=== PATIENT | female | born 1960 | race Caucasian/White ===

== ENCOUNTER 2023-06-28 21:06 | Emergency (ER) | payer OTHER, SELFPAY ==
[2023-06-28 21:14] VITALS: BP 190/110; PULSE 73; TEMP 36.6; O2SAT 94; BMI 43.0
--- NOTE | 2023-06-28 21:23 | ECG_ITS ---
[facility] Test Date: 2023-06-28 Pat Name: JERAMIE PEREZ Department: Room: - Gender: Female Ic Engineer: : 1960 Requested By: FRED TORREZ Order Number: [id number] Reading MD: FRED TORREZ Measurements Intervals [place] Rate: 64 P: 61 TN: 168 QRS: 70 QRSD: 84 T: 77 QT: 404 QTc: 413 Interpretive Statements 1100 Sinus rhythm [address] depression 9130 borderline ECG No previous ECG available for comparison Electronically Signed On 06-29-2023 5:30:15 EDT by FRED TORREZ
--- NOTE | 2023-06-28 21:24 | XR_ITS ---
[address] [address] Patient Name: JERAMIE PEREZ MRN: [id number] date: 1960 Sex: F Assigned Patient Location: ER Current Patient Location: ER Accession/Order Number: [id number] Exam Date: 06/28/2023 21:35 Report Date: 06/28/2023 22:59 At the request of: DANGELO WADE Procedure: XR chest 1V EXAMINATION: XR chest 1V, , 06/28/2023 9:35 PM EDT INDICATION: Hypertension HISTORY: Ordering Provider Reason for Exam: Hypertension Technologist Note: Additional: COMPARISON: None. TECHNIQUE: Chest x-ray: One view. FINDINGS: No pneumothorax, pleural effusion or focal airspace consolidation. Heart is normal in size. Bony thorax is unremarkable. XR/XR chest 1V IMPRESSION: No acute cardiopulmonary process. Electronically authenticated by: ZOË HOSKINS Date: 06/28/2023 22:59
--- NOTE | 2023-06-28 21:24 | CT_ITS ---
The [address] [address] Patient Name: JERAMIE PEREZ MRN: [id number] date: 1960 Sex: F Assigned Patient Location: ER Current Patient Location: Accession/Order Number: [id number] Exam Date: 06/28/2023 22:50 Report Date: 06/29/2023 00:12 At the request of: DANGELO WADE Procedure: CT head/brain wo con EXAM: CT head/brain wo con HISTORY: Neck pain and hypertension. TECHNIQUE: Axial CT scans through the head were obtained without IV contrast administration. Dose reduction techniques were achieved by using: automated exposure control and/or adjustment of mA and /or kV according to patient size and/or the use of an iterative reconstruction technique. COMPARISON: None. FINDINGS: The cerebral hemispheres have normal white and catherine matter and corticomedullary differentiation. To the limit of CT, the posterior fossa appears unremarkable. The ventricular system and cortical sulci are normal for the patient's age. No area of abnormal mass-effect or edema or intracranial hemorrhage. The visualized orbits show no abnormal mass. The visualized paranasal sinuses show no air-fluid level. Mastoid air cells are clear. CT/CT head/brain wo con IMPRESSION: No acute intracranial process. Electronically authenticated by: NEVIN JOHNSON Date: 06/29/2023 00:12
[2023-06-28 21:48] LABS: Basophils Percent Auto 0.4 % (0.2-2.0); Eosinophils Absolute Auto 0.2 10^3/uL (0.0-0.7); Eosinophils Percent Auto 1.5 % (0.9-7.0); Hematocrit 44.7 % (36.0-48.0); Hemoglobin 14.8 g/dL (12.0-16.0); Immature Granulocytes Abs Auto 0.03 10^3/uL (0.00-0.03); Immature Granulocytes Pct Auto 0.3 % (0.0-0.5); Lymphocytes Absolute Auto 3.5 10^3/uL (1.2-3.8); Lymphocytes Percent Auto 34.5 % (20.5-60.0); Mean Corpuscular HGB Conc 33.1 g/dL (29.9-35.2); Mean Corpuscular Hemoglobin 30.8 pg (26.7-34.0); Mean Corpuscular Volume 92.9 fL (81.0-99.0); Mean Platelet Volume 10.7 fL (9.5-13.5); Monocytes Absolute Auto 0.9 10^3/uL (0.3-0.8); Monocytes Percent Auto 8.8 % (1.7-12.0); Neutrophils Absolute Auto 5.5 10^3/uL (1.4-6.5); Neutrophils Percent Auto 54.5 % (43.0-75.0); Platelet Count 355 10^3/uL (150-450); Red Blood Count 4.81 10^6/uL (4.20-5.40); Red Cell Distribution Width 12.6 % (11.0-15.0)
--- NOTE | 2023-06-28 21:48 | ED_ITS ---
Documented by User: DONALD Jeong 06/28/23 21:53 HPI HPI - General Adult General Chief complaint: Chest Pain Stated complaint: WEAKNESS Time Seen by Provider: 06/28/23 21:15 Source: patient Mode of arrival: walk-in Limitations: no limitations History of Present Illness HPI narrative: Patient is a 62-year-old female who presents to the emergency department for elevated blood pressure and feeling flushed, approximately 30 to 45 minutes prior to arrival. She states that she has a history of high blood pressure, she takes propranolol only and is due for her nighttime dosage at 10 PM. She states that she started to feel flushed and noticed discomfort in her neck. Several days ago she had a headache. She has had no chest pain although she states se veral days ago she had pressure in her chest. She has had no other fevers, cough or congestion. No visual loss or peripheral paresthesias. She checked her blood pressure and it was elevated. She states she does not feel dizzy although she did in the last several days. No syncope or falls. She has been on propranolol without adjustment for the last 10 years. Related Data Home Medications ?Medication ?Instructions ?Recorded ?Confirmed propranolol 60 mg tablet 60 mg PO DAILY 06/28/23 06/28/23 Allergies Allergy/AdvReac Type Severity Reaction Status Date / Time No Known Drug Allergies Allergy Verified 06/28/23 21:22 Opioid HPI Opioid Management Most Recent Opioid Data: No Data to Display Review of Systems ROS Constitutional Denies: fever or chills Eyes Denies: change in vision Cardiovascular Reports: chest pain Respiratory Denies: shortness of breath or cough Gastrointestinal Denies: abdominal pain, nausea or vomiting Musculoskeletal Reports: neck pain; Denies: back pain Integumentary/Breast Denies: rash Neurological Reports: dizziness; Denies: headache, numbness in extremities, weakness in extremities or slurred speech Hematologic/Lymphatic Denies: easy bruising or easy bleeding Exam Narrative Exam Narrative: Gen.: Awake, alert, in no distress Head: Normocephalic, atraumatic ENT: Moist mucous membranes Respiratory: No respiratory distress, lungs clear bilaterally Cardio: Regular rate and rhythm Extremities: Moves extremities equally Psych: Normal mood and affect Neuro: No focal neuro deficit Skin: Warm, dry, intact Constitutional Vital Signs, click to edit/add: Last Vital Signs Temp 97.8 F 06/28/23 21:14 Pulse 73 06/28/23 21:14 Resp 18 06/28/23 21:14 BP 143/80 H 06/28/23 23:17 Pulse Ox 94 L 06/28/23 21:14 O2 Del Method Room Air 06/28/23 21:14 Course Vital Signs Vital signs: Vital Signs Temperature 97.8 F 06/28/23 21:14 Pulse Rate 73 06/28/23 21:14 Respiratory Rate 18 06/28/23 21:14 Blood Pressure 190/110 H 06/28/23 21:14 Pulse Oximetry 94 L 06/28/23 21:14 Oxygen Delivery Method Room Air 06/28/23 21:14 Temperature 97.8 F 06/28/23 21:14 Pulse Rate 73 06/28/23 21:14 Respiratory Rate 18 06/28/23 21:14 Blood Pressure 143/80 H 06/28/23 23:17 Pulse Oximetry 94 L 06/28/23 21:14 Oxygen Delivery Method Room Air 06/28/23 21:14 Medical Decision Making [facility] Narrative Medical decision making narrative: 2151: Patient noted to have an elevated blood pressure, she states she feels better at this time from when her symptoms started at home. She was ordered to have a CT of the brain, chest x-ray. EKG is unremarkable. Lab studies were ordered as well with an IV and the patient was given IV Vasotec. Case is turned over to attending physician at this time for disposition. Medical Records Medical records reviewed: Yes I reviewed the patient's medical records Lab Data Lab results reviewed: Yes I reviewed the patient's lab results Labs: Lab Results 06/28/23 Range/Units 21:40 WBC 10.0 (4.0-11.0) 10^3/uL RBC 4.81 (4.20-5.40) 10^6/uL Hgb 14.8 (12.0-16.0) g/dL Hct 44.7 (36.0-48.0) % MCV 92.9 (81.0-99.0) fL MCH 30.8 (26.7-34.0) pg MCHC 33.1 (29.9-35.2) g/dL RDW 12.6 (11.0-15.0) % Plt Count 355 (150-450) 10^3/uL MPV 10.7 (9.5-13.5) fL Neut % (Auto) 54.5 (43.0-75.0) % Lymph % (Auto) 34.5 (20.5-60.0) % [place] % (Auto) 8.8 (1.7-12.0) % Eos % (Auto) 1.5 (0.9-7.0) % Baso % (Auto) 0.4 (0.2-2.0) % Neut # (Auto) 5.5 (1.4-6.5) 10^3/uL Lymph # (Auto) 3.5 (1.2-3.8) 10^3/uL [place] # (Auto) 0.9 H (0.3-0.8) 10^3/uL Eos # (Auto) 0.2 (0.0-0.7) 10^3/uL Baso # (Auto) 0.0 (0.0-0.1) 10^3/uL Abs Immat Gran (auto) 0.03 (0.00-0.03) 10^3/uL Imm/Tot Granulo (auto) 0.3 (0.0-0.5) % PT 10.0 (9.0-11.6) sec INR 0.94 Sodium 139 (136-145) mmol/L Potassium 3.9 (3.5-5.1) mmol/L Chloride 104 (98-107) mmol/L Carbon Dioxide 27.1 (21.0-32.0) mmol/L Anion Gap 11.8 BUN 22.0 H (7.0-18.0) mg/dL Creatinine 0.67 (0.55-1.02) mg/dL Est GFR ( Amer) >60 (>=60) Est GFR (Non-Af Amer) >60 (>=60) BUN/Creatinine Ratio 32.8 Glucose 134 H (74-106) mg/dL Calcium 9.3 (8.5-10.1) mg/dL Magnesium 2.1 (1.8-2.4) mg/dL Total Bilirubin 0.5 (0.2-1.0) mg/dL AST 8 L (15-37) U/L ALT 25 (14-59) U/L Alkaline Phosphatase 124 H (46-116) U/L Troponin I High Sens 20.3 (4.0-51.3) pg/mL NT-Pro-B Natriuret Pep 234.0 (<=900.0) pg/mL Total Protein 7.1 (6.4-8.2) g/dL Albumin 3.3 L (3.4-5.0) g/dL Globulin 3.8 g/dL Albumin/Globulin Ratio 0.9 TSH 2.965 (0.358-3.740) uIU/mL Discharge Plan Discharge Stand Alone Forms: Portal Instructions Chief Complaint: Chest Pain Clinical Impression: Hypertension Patient Disposition: Home, Self-Care Prescriptions / Home Meds: No Action propranolol 60 mg tablet 60 mg PO DAILY Print Language: Danish Instructions: Hypertension (ED) Additional Instructions: labs demonstrated elevated alkaline phosphatase that will require follow up with your doctor Referrals: Physician,Non-Staff, [Primary Care Provider] - 1 week Documented by User: Clinton Hill MD 06/29/23 00:22 HPI HPI - General Adult General Chief complaint: Chest Pain Stated complaint: WEAKNESS Time Seen by Provider: 06/28/23 21:15 Related Data Home Medications ?Medication ?Instructions ?Recorded ?Confirmed propranolol 60 mg tablet 60 mg PO DAILY 06/28/23 06/28/23 Allergies Allergy/AdvReac Type Severity Reaction Status Date / Time No Known Drug Allergies Allergy Verified 06/28/23 21:22 Opioid HPI Opioid Management Most Recent Opioid Data: No Data to Display Exam Constitutional Vital Signs, click to edit/add: Last Vital Signs Temp 97.8 F 06/28/23 21:14 Pulse 73 06/28/23 21:14 Resp 18 06/28/23 21:14 BP 143/80 H 06/28/23 23:17 Pulse Ox 94 L 06/28/23 21:14 O2 Del Method Room Air 06/28/23 21:14 Course Vital Signs Vital signs: Vital Signs Temperature 97.8 F 06/28/23 21:14 Pulse Rate 73 06/28/23 21:14 Respiratory Rate 18 06/28/23 21:14 Blood Pressure 190/110 H 06/28/23 21:14 Pulse Oximetry 94 L 06/28/23 21:14 Oxygen Delivery Method Room Air 06/28/23 21:14 Temperature 97.8 F 06/28/23 21:14 Pulse Rate 73 06/28/23 21:14 Respiratory Rate 18 06/28/23 21:14 Blood Pressure 143/80 H 06/28/23 23:17 Pulse Oximetry 94 L 06/28/23 21:14 Oxygen Delivery Method Room Air 06/28/23 21:14 Medical Decision Making MDM Narrative Medical decision making narrative: 2151: Patient noted to have an elevated blood pressure, she states she feels better at this time from when her symptoms started at home. She was ordered to have a CT of the brain, chest x-ray. EKG is unremarkable. Lab studies were ordered as well with an IV and the patient was given IV Vasotec. Case is turned over to attending physician at this time for disposition. patient presented with transient symptoms. Workup pending at change of shift and neg except for isolated alk phos. Patient no longer has a gallbladder. No abdominal symptoms. Discharged to follow up with her doctor and advised to have the alk phos rechecked Lab Data Labs: Lab Results 06/28/23 Range/Units 21:40 WBC 10.0 (4.0-11.0) 10^3/uL RBC 4.81 (4.20-5.40) 10^6/uL Hgb 14.8 (12.0-16.0) g/dL Hct 44.7 (36.0-48.0) % MCV 92.9 (81.0-99.0) fL MCH 30.8 (26.7-34.0) pg MCHC 33.1 (29.9-35.2) g/dL RDW 12.6 (11.0-15.0) % Plt Count 355 (150-450) 10^3/uL MPV 10.7 (9.5-13.5) fL Neut % (Auto) 54.5 (43.0-75.0) % Lymph % (Auto) 34.5 (20.5-60.0) % [place] % (Auto) 8.8 (1.7-12.0) % Eos % (Auto) 1.5 (0.9-7.0) % Baso % (Auto) 0.4 (0.2-2.0) % Neut # (Auto) 5.5 (1.4-6.5) 10^3/uL Lymph # (Auto) 3.5 (1.2-3.8) 10^3/uL [place] # (Auto) 0.9 H (0.3-0.8) 10^3/uL Eos # (Auto) 0.2 (0.0-0.7) 10^3/uL Baso # (Auto) 0.0 (0.0-0.1) 10^3/uL Abs Immat Gran (auto) 0.03 (0.00-0.03) 10^3/uL Imm/Tot Granulo (auto) 0.3 (0.0-0.5) % PT 10.0 (9.0-11.6) sec INR 0.94 Sodium 139 (136-145) mmol/L Potassium 3.9 (3.5-5.1) mmol/L Chloride 104 (98-107) mmol/L Carbon Dioxide 27.1 (21.0-32.0) mmol/L Anion Gap 11.8 BUN 22.0 H (7.0-18.0) mg/dL Creatinine 0.67 (0.55-1.02) mg/dL Est GFR ( Amer) >60 (>=60) Est GFR (Non-Af Amer) >60 (>=60) BUN/Creatinine Ratio 32.8 Glucose 134 H (74-106) mg/dL Calcium 9.3 (8.5-10.1) mg/dL Magnesium 2.1 (1.8-2.4) mg/dL Total Bilirubin 0.5 (0.2-1.0) mg/dL AST 8 L (15-37) U/L ALT 25 (14-59) U/L Alkaline Phosphatase 124 H (46-116) U/L Troponin I High Sens 20.3 (4.0-51.3) pg/mL NT-Pro-B Natriuret Pep 234.0 (<=900.0) pg/mL Total Protein 7.1 (6.4-8.2) g/dL Albumin 3.3 L (3.4-5.0) g/dL Globulin 3.8 g/dL Albumin/Globulin Ratio 0.9 TSH 2.965 (0.358-3.740) uIU/mL Discharge Plan Discharge Stand Alone Forms: Portal Instructions Chief Complaint: Chest Pain Clinical Impression: Hypertension Patient Disposition: Home, Self-Care Prescriptions / Home Meds: No Action propranolol 60 mg tablet 60 mg PO DAILY Print Language: Danish Instructions: Hypertension (ED) Additional Instructions: labs demonstrated elevated alkaline phosphatase that will require follow up with your doctor Referrals: Physician,Non-Staff, MD [Primary Care Provider] - 1 week
[2023-06-28 22:01] LABS: INR 0.94
[2023-06-28 22:07] LABS: Alanine Aminotransferase 25 U/L (14-59); Albumin Globulin Ratio 0.9; Albumin Level 3.3 g/dL (3.4-5.0); Alkaline Phosphatase 124 U/L (46-116); Anion Gap 11.8; Aspartate Amino Transferase 8 U/L (15-37); BUN Creatinine Ratio 32.8; Bilirubin Total 0.5 mg/dL (0.2-1.0); Calcium 9.3 mg/dL (8.5-10.1); Carbon Dioxide 27.1 mmol/L (21.0-32.0); Chloride 104 mmol/L (98-107); Estimated GFR (African America >60 (>=60); Estimated GFR (Non-African Ame >60 (>=60); Globulin 3.8 g/dL; Glucose 134 mg/dL (74-106); Potassium 3.9 mmol/L (3.5-5.1); Sodium 139 mmol/L (136-145); Total Protein 7.1 g/dL (6.4-8.2)
[2023-06-28 22:14] LABS: Magnesium 2.1 mg/dL (1.8-2.4); Thyroid Stimulating Hormone 2.965 uIU/mL (0.358-3.740); Troponin I High Sensitivity 20.3 pg/mL (4.0-51.3)
[2023-06-28 22:27] VITALS: BP 190/110
[2023-06-28] MEDS: ENALAPRILAT DIHYDRATE 1.25 MG/ML VIAL IV (22:27)
[2023-06-28 22:33] VITALS: PULSE 62
[2023-06-28 23:14] VITALS: BP 151/95
[2023-06-28 23:17] VITALS: BP 143/80
[2023-06-28 23:31] VITALS: BP 138/76
[2023-06-29 00:01] VITALS: BP 130/72
[2023-06-29 00:22] VITALS: PULSE 63; O2SAT 96
== END 2023-06-29 00:35 | disposition home or self-care (01) ==
PROVIDERS: Physician Assistant; Emergency Provider Internal Medicine
DX: I10 Essential (primary) hypertension (principal); Z79.899 Other long term (current) drug therapy
CPT/HCPCS: 36415; 70450; 71045; 80053; 83735; 83880; 84443; 84484; 85025; 85610; 93005; 96374; 99285

== ENCOUNTER 2024-12-14 12:31 | Outpatient (OUT) | payer OTHER, SELFPAY ==
--- OUTSIDE RECORDS SUMMARY | 2023-06-14 05:50 | XMS_ITS ---
Author Organization [facility] Address [address] [facility] [place] [address] Care Team Providers Care Credit And Loan Collections Supervisor Name Role Phone Erin Candy Primary Care Provider Brandy Berger [phone] REASON FOR VISIT EXAM Encounters Encounter Location Date Provider Diagnosis [facility] [address] [place] [place] [address] 06/14/2023 Brandy Berger Plan Of Treatment Next Appt Details Provider Name:Candy Khan, 01/01/2025 11:30:00 AM, [address] [place], [address], Progress Notes * ANABLANE ARIASLY ADOB:1960 (64 yo F)Acc No.[id number]:06/14/2023 Patient:?JERAMIE PEREZ :?Brandy Berger DDSDOB:1960???Age:62 Y ???Sex:FemaleDate:06/14/2023hone:[phone]:[address], [place], [id number]:Candy Khan Subjective: * Chief Complaints: * E XAM * Electronic signature of Brandy Berger DDS on 12/14/2024 at 12:34 PM ESTSign off status: Pending * Provider: Karen Berger DDS Date: 0 06/14/2023 Generated for Printing/Faxing/eTransmitting on:?12/14/2024 12:34 PM EST
--- OUTSIDE RECORDS SUMMARY | 2023-07-06 06:20 | XMS_ITS ---
Author Organization [facility] Address [address] [facility] [place] [address] Care Team Providers Care Rn Post Partum Name Role Phone Candy Khan Primary Care Provider [phone] Brandy Berger [phone] REASON FOR VISIT new patient dental exam Encounters Encounter Location Date Provider Diagnosis [address] [place] [address] [place] [address] 07/06/2023 Brandy Berger Plan Of Treatment Next Appt Details Provider Name:Candy Khan, 01/01/2025 11:30:00 AM, [address] [place], [address], Progress Notes * JERAMIE PEREZ ADOB:1960 (64 yo F)Acc No.[id number]:07/06/2023 Patient:?JERAMIE PEREZ :?Brandy Berger DDSDOB:1960???Age:62 Y ???Sex:FemaleDate:07/06/2023hone:[phone]:[address], [place], [id number]:Candy Khan Subjective: * Chief Complaints: * N ew patient dental exam * Electronic signature of Brandy Berger DDS on 12/14/2024 at 12:34 PM ESTSign off status: Pending * Provider: Karen Berger DDS Date: 0 07/06/2023 Generated for Printing/Faxing/eTransmitting on:?12/14/2024 12:34 PM EST
--- OUTSIDE RECORDS SUMMARY | 2023-07-27 06:30 | XMS_ITS ---
Author Organization [facility] Address [address] [facility] [address] Care Team Providers Care Laborer Concrete Paving Name Role Phone Candy Khan Primary Care Provider Brandy Berger [phone] REASON FOR VISIT NEW PATIENT DENTAL EXAM Encounters Encounter Location Date Provider Diagnosis [address] [place] [address] [place] [address] 07/27/2023 Brandy Berger Plan Of Treatment Next Appt Details Provider Name:Candy Khan, 01/01/2025 11:30:00 AM, [address] [place], [address], Progress Notes * ANA JERAMIE ADOB:1960 (64 yo F)Acc No.[id number]:07/27/2023 Patient:?JERAMIE PEREZ :?Brandy Berger DDSDOB:1960???Age:63 Y ???Sex:FemaleDate:07/27/2023hone:[phone]:[address], [place], [id number]:Candy Khan Subjective: * Chief Complaints: * N EW PATIENT DENTAL EXAM Billing Information: * Procedure Codes: * Electronic signature of Brandy Berger DDS on 12/14/2024 at 12:34 PM ESTSign off status: Pending * Provider: Karen Berger DDS Date: 0 07/27/2023 Generated for Printing/Faxing/eTransmitting on:?12/14/2024 12:34 PM EST
--- OUTSIDE RECORDS SUMMARY | 2024-06-27 06:15 | XMS_ITS ---
Author Organization [facility] Address [address] [place] [address] Care Team Providers Care Leaf Blender Name Role Phone Sudheermarisabel Candy Primary Care Provider [phone] Yoandy Del Real [phone] REASON FOR VISIT 3 WEEK MED F/U Encounters Encounter Location Date Provider Diagnosis [facility] [address] [place] [address] 06/27/2024 Yoandy Del Real Plan Of Treatment Next Appt Details Provider Name:Candy Willardmarisabel, 01/01/2025 11:30:00 AM, [address] [place], [address], Progress Notes * ANAJERAMIE ARIAS ADOB:1960 (64 yo F)Acc No.[id number]:06/27/2024 Progress Notes Patient: JERAMIE GARDNER Provider:Amilcar Del RealDOB:1960???Age:63 Y???Sex:FemaleDate:06/27/2024Phone:[phone]:[address], [place], [place]-[phone]:Candy Erin Subjective: * Chief Complaints: * 3 WEEK MED F/U * Electronic signature of Yoandy Del Real , [employer]CH[employer], [id number] on 12/14/2024 at 12:35 PM ESTSign off status: Pending * Appointment Provider: Karen Del Real Date: 0 06/27/2024 Generated for Printing/Faxing/eTransmitting on:?12/14/2024 12:35 PM EST
--- OUTSIDE RECORDS SUMMARY | 2024-07-25 08:00 | XMS_ITS ---
Author Organization [facility] Address [address] [place] [address] Care Team Providers Care Granite Polisher Name Role Phone Candy Khan Primary Care Provider Lala Mirza [phone] REASON FOR VISIT 6week med f/u Encounters Encounter Location Date Provider Diagnosis [facility] [address] [place] [address] 07/25/2024 Lala Mirza Plan Of Treatment Next Appt Details Provider Name:Candy Khan, 01/01/2025 11:30:00 AM, [address] [place], [address], Progress Notes * JERAMIE PEREZ ADOB:1960 (64 yo F)Acc No.[id number]:07/25/2024 Progress Notes Patient: JERAMIE GARDNER Provider:?DAWSON RODRIGUEZOB:1960 ???Age:64 Y???Sex:FemaleDate:07/25/2024Phone:[phone]:[address], [place] [facility] [place], [place]Bml:Candy Khan Subjective: * Chief Complaints: * 6 week med f/u Billing Information: * Procedure Codes: * Electronic signature of Lala Mirza DO on 12/14/2024 at 12:34 PM ESTSign off status: Pending * Appointment Provider: Hallie ELISE DO Date: 0 07/25/2024 Generated for Printing/Faxing/eTransmitting on:?12/14/2024 12:34 PM EST
--- OUTSIDE RECORDS SUMMARY | 2024-12-04 06:00 | XMS_ITS ---
Author Organization [facility] ([place], [place]) Servic es Address [address] [place] [address] Care Team Providers Care Crts Name Role Phone Candy Khan Primary Care Provider REASON FOR VISIT CHIQUITA Bertke/ med refills Medications Medication SIG (Take, Route, Frequency, Duration) Notes Start Date End Date Status Ozempic (0.25 or 0.5 MG/DOSE ) 2 MG/3ML Solution Pen-injector 0.25 mg/dose once a week Subcutaneous on a week; Duration: 30 days 5ActivePropranolol HCl ER 160 MG Capsule Extended Release 24 HourTAKE 1 CAPSULE BY MOUTH EVERY DAY; Duration: 90 daysActivemetFORMIN HCl 500 MG Tablet TAKE 1 TABLET BY MOUTH TWICE A DAY WITH MEALS; Duration: 90Not-Taking/PRN Lisinopril 20 MG TabletTAKE 1 TABLET BY MOUTH EVERY DAY FOR 30 DAYS; Duration: 30 daysActive Social History Tobacco Use: Social History Observation Description Date Details (start date - stop date) Never Smoker NA - NA Social History GeneralSocial InfoQuestionAnswerNotesTransition of Care:ER/UC/hospital since last office visit?NoSpecialist seen since last office visit?NoSubstance abuse/mental health issues of patient/familyPatient -DeniesAbility to understand healthcare/treatmentPatient:GoodSocial/Support Concerns:Patient:NoBehaviors affecting healthPoor/Risky Behaviors:Denies-Communication Barrier:Language Barrier?:NoDrug/Alcohol:Social InfoQuestionAnswerNotesAUDIT-C (Standard)Did you have a drink containing alcohol in the past year?Yes? How often did you have a drink containing alcohol in the past year?Monthly or less (1 point)? How many drinks did you have on a typical day when you were drinking in the past year?1 or 2 drinks (0 point)? How often did you have six or more drinks on one occasion in the past year?Less than monthly (1 point)[id number] (2020 Edition)1. Have you used drugs other than those required for medical reasons?No2. Do you abuse more than one drug at a time?No3. Are you always able to stop using drugs when you want to?Yes4. Have you had blackouts or flashbacks as a result of drug use?No5. Do you ever feel bad or guilty about your drug use?No6. Does your spouse (or parents) ever complain about your involvement with drugs?No7. Have you neglected your family because of your use of drugs?No8. Have you engaged in illegal activities in order to obtain drugs?No 9. Have you ever experienced withdrawal symptoms (felt sick) when you stopped taking drugs?No10. Have you had medical problems as a result of your drug use (e.g., memory loss, hepatitis, convulsions, bleeding etc.)?NoResults:0 Interpretation of Score:No problems reportedTobacco Use:Social InfoQuestion AnswerNotesTobacco Control (Standard)Tobacco use:Nonsmoker Vital Signs Blood pressure systolic 152 mm Hg 12/05/19 25 Blood pressure diastolic 85 mm Hg 025 Heart Rate 61 /min 12/04/2024 Respiratory Rate 18 /min 12/04/2024 Height 5ft in 12/04/2024 Weight 223 lbs 12/04/2024 BMI 43.55 kg/m2 12/04/2024 Oximetry 95 % 12/04/2024 Encounters Encounter Location Date Provider Diagnosis [address] [address] 12/04/2024 Candy Khan Primary hypertension I10 ; Screening mammogram for breast cancer Z12.31 ; Lipid screening Z13.220 ; Diabetes mellitus screening Z13.1 ; Encounter for screening for cardiovascular disorders Z13.6 and Type 2 diabetes mellitus without complication, without long-term current use of insulin E11.9 Assessments Encounter Date Diagnosis (ICD Code) Assessment Notes Treatment Notes Treatment Clinical Notes Section Notes 12/04/2024 Primary hypertension (ICD-10 - I 10) DIscussed with pt that I would like her to take Lisinopril daily to further decrease her blood pressure as it is very elevated despite the highest dose of propranolol. Also educated pt that I would consider a lower dose of propranolol in the future and increasing the lisinopril due to pt's heart rate being on the lower side of normal at 61 beats per minute. Pt is to report to the ER if experiencing one of the following symptoms: SOB, chest pain, worse headache of her life, ripping abdominal pain, or syncopal events. Pt voiced understanding. Pt is to come back in 4 weeks to assess effectiveness of therapy.12/04/2024 Screening mammogram for breast cancer (ICD-10 - Z12.31)Mammogram order sent to [facility], will call pt with results.12/04/2024Lipid screening (ICD-10 - Z13.220)Labs sent to [place], will call pt with results.12/04/2024Diabetes mellitus screening (ICD-10 - Z13.1)A1C in office today was 6.5 . This is lower since last A1c from 05/2024 at 7.1. Pt was initially on MEtformin therapy for her prediabetes, however she stopped taking it due to stomach upset. Discussedour options between sulfonylureas, glipizide vs. GLP1, semaglutide. Educated pt about the side effects of both and pt states that she would prefer the Ozempic. Ozempic sent to pharmacy. Pt is to callinsurance to see what GLP1 they would cover for her since she trialed and failed Metformin. Pt is agreeable to the treatment plan.12/04/2024Encounter for screening for cardiovascular disorders (ICD-10 - Z13.6)12/04/2024Type 2 diabetes mellitus without complication, without long-term current use of insulin (ICD-10 - E11.9) Plan Of Treatment Medication Medication Name Sig Start Date Stop Date Notes Ozempic (0.25 or 0.5 MG/DOSE ) 2 MG/3ML Solution Pen-injector 0.25 mg/dose once a week Subcutaneous one a week; Duration: 30 days 12/04/2024 Propranolol HCl ER 160 MG Capsule Extended Release 24 HourTAKE 1 CAPSULE BY MOUTH EVERY DAY; Duration: 90 daysLisinopril 20 MG TabletTAKE 1 TABLET BY MOUTH EVERY DAY FOR 30 DAYS; Duration: 30 daysTreatment Notes Assessment Notes Primary hypertension DIscussed with pt t hat I would like her to take Lisinopril daily to further decrease her blood pressure as it is very elevated despite the highest dose of propranolol. Also educated pt that I would consider a lower dose of propranolol in the future and increasing the lisinopril due to pt's heart rate being on the lower side of normal at 61 beats per minute. Pt is to report to the ER if experiencing one of the following symptoms: SOB, chest pain, worse headache of her life, ripping abdominal pain, or syncopal events. Pt voiced understanding. Pt is to come back in 4 weeks to assess effectiveness of therapy. Screening mammogram for breast cancer [place] mmogram order sent to [facility], will call pt with results. Lipid screening Labs sent to [place], will call pt with results. Diabetes mellitus screening A1C in offic e today was 6.5 . This is lower since last A1c from 05/2024 at 7.1. Pt was initially on MEtformin therapy for her prediabetes, however she stopped taking it due to stomach upset. Discussed our options between sulfonylureas, glipizide vs. GLP1, semaglutide. Educated pt about the side effects of both and pt states that she would prefer the Ozempic. Ozempic sent to pharmacy. Pt is to call insurance to see what GLP1 they would cover for her since she trialed and failed Metformin. Pt is agreeable to the treatment plan. Pending Test Test Name Order Date Comprehensive Metabolic Panel 12/04/2024 Lipid Panel 12/04/2024 Thyroid Stim Hormone w/Rflx 12/04/2024 Complete Blood Count Auto Diff 5 MM screening mammo BI w/CAD 12/04/2024 Next Appt Details Follow Up: 4 Weeks, Reason: bp and T2DM recheck Provider Name:Candy Sanmarisabel, 01/01/2025 11:30:00 AM, [address] [place], [address], History and Physical Notes * Examination CategorySub-CategoryDetailNotesCategory NotesGeneral ExaminationNECK/THYROID: trachea is midline, no adenopathy, normal thyroid without masses or nodules CARDIOVASCULAR:Bradycardiac and regular rhythm, S1/S2 are normal, no murmurs, rubs, or gallopsRESPIRATORY:clear to auscultation bilaterally, good breath sounds bilaterally, no wheezes, rhonchi, ralesGASTROINTESTINAL:Abdomen Soft, not tender, positive bowel sounds in all 4 quadrants, no guarding.EXTREMITIES: bilaterally no clubbing, cyanosis, or edemaGENERAL APPEARANCE:Alert and oriented, in no acute distress, pleasantSKIN:moist, warm, unremarkable, no rash NEUROLOGIC EXAM:appropriate for ageORAL CAVITY:moist mucous membranes, uvula midline, tongue midlinePERIPHERAL PULSES:radial pulses +2/4 bilaterally, posterior tibial pulses +2/4 bilaterallyCHEST:normal shape and expansion MUSCULOSKELETAL:Normal ROM and strength is 5/5 throughout, normal inspection, no effusions, no swelling or deformityLYMPH NODES:normal, No palpable adenopathy FACE:symmetrical, well appearing Progress Notes * JERAMIE PEREZ ADOB:1960 (64 yo F)Acc No.[id number]:12/04/2024 Progress Notes Patient: JERAMIE GARDNER Provider:?DONALD Shay-CDOB:1960 ???Age:64 Y???Sex:FemaleDate:12/04/2024Phone:[phone]:[id number] [id number] Subjective: * Chief Complaints: * T [facility] Bertke/ med refills * HPI: ???Constitutional:?Pt is here for a CHIQUITA and to follow up for some of her chronic conditions. Pt has pertinent medical history of hypertension and T2DM. Pt has not gotten lab work or her mammogram yet due to insurance not being accepted at [facility]. Pt is currently not on anything for her diabetes due to having stomach upset from the Metformin. Our other provider Gibran sent in Ozempic but pt states she has never gotten it or heard anything back from that. Pt states she is only taking the propranolol for her hypertension. Earlier this year pt went to ER due to hypertension. Pt states she took one dose of her 's Lisinopril, and it did nothing then she went and got an IV medication to lower her blood pressure. Pt states she has been feeling dizzy lately and states she thinks it is from the T2DM or the HTN. Pt has familial history of colon caner, her brother from colon cancer. Pt had colonoscopy at 56yrs old, and it came back normal and with no polyps. Pt is to get colonoscopy in 2 years.Pt denies: SOB, chest pain, or syncopal events. * ROS: ???General Review of Systems:?General?Denies fever, chills, weight loss.?Eyes?Denies vision changes, no double vision or blurry vision. .?HEENT?Denies sore throat, ear pain., Denies fevers , chills, Denies nasal congestion, or pressure, Denies hoarseness, change in voice, difficulty swallowing.?Cardiovascular?Denies chest pain, palpitations, exertional dyspnea.?Respiratory?Denies cough, dyspnea, wheezing, sputum production, hemoptysis.?Gastrointestinal?Denies abdominal pain, nausea, vomiting, diarrhea, or constipation. Denies blood in stool or changes in bowel habits..?Genitourinary?Denies urgency, frequency, dysuria, hem aturia.?Musculoskeletal?Denies joint pain, myalgias.?Dermatology?Denies rashes o r lesions.?Neurological?Denies any lightheadedness, dizziness, headache, new numbness or tingling in hands or feet. .?Psychiatric?Denies anxiety, depression, Denies suicidal ideation, Patient states feels safe at home, Mood stable per pt..?Endocrinologic?Denies polyuria, polydipsia, polyphagia.?Hem/Lymph ?Denies easy bruising, bleeding, swollen lymph nodes.?Allerg/Immun?Denies allergies or hay fever.? * Medical History: Hypertension type II diabetes Medical History Verified * Surgical History: gallbladder ? colonoscopy ? Surgical History verified.? * Hospitalization/Major Diagno stic Procedure: see surgical ? Hospitalization Verified.? * Family History: D aughter(s): alive. F ather: , diagnosed with Hypertension. S on(s): alive.?Mother: alive, diagnosed with Cancer. 1 brother(s) . 2 son(s) , 1 daughter(s) - healthy. .?Family History Verified.. Mother- breast Cancer, Brother- Passed from Colon Cancer. * Social History: ???Drug/Alcohol:?DAST-10 (2020 Edition)?1. Have you used drugs other than those required for medical reasons??No,?2. Do you abuse more than one drug at a time??No,?3. Are you always able to stop using drugs when you want to??Yes,?4. Have you had blackouts or flashbacks as a result of drug use??No,?5. Do you ever feel bad or guilty about your drug use??No,?6. Does your spouse (or parents) ever complain about your involvement with drugs??No, 7. Have you neglected your family because of your use of drugs??No,?8. Have you engagedin illegal activities in order to obtain drugs??No,?9. Have you ever experienced withdrawal symptoms (felt sick) when you stopped taking drugs??No,?10. Have you had medical problems as a result of your drug use (e.g., memory loss, hepatitis, convulsions, bleeding etc.)??No, Results:?0,?Interpretation of Score:?No problems reported.?AUDIT-C (Standard)?Did you have a drink containing alcohol in the past year??Yes,?How often did you have a drink containing alcohol in the past year??Monthly or less (1 point),?How many drinks did you have on a typical day when you were drinking in the past year??1 or 2 drinks (0 point),?How often did you have six or more drinks on one occasion in the past year??Less than m onthly (1 point),?Points?2,?Interpretation?Negative.?General:?Transition of Care?ER/UC/hospital since last office visit??No,?Specialist seensince last office visit??No.?Behaviors affecting health?Poor/Risky Behaviors:?Denies-.?Substance abuse/mental health issues of patient/family?Patient -?Denies.?Social/Support Concerns?Patient:?No.?Ability to understand healthcare/treatment?Patient:?Good.?Communication Barrier?Language Barrier?:?No.?Tobacco Use:?Tobacco Control (Standard)?Tobacco use:?Nonsmoker.? * Medications: T akingPropranolol HCl ER 160 MG Capsule Extended Release 24 Hour TAKE 1 CAPSULE BY MOUTH EVERY DAY Taking Propranolol HCl ER 160 MG Capsule Extended Release 24 Hour TAKE 1 CAPSULE BY MOUTH EVERY DAY Not-Taking/PRNmetFORMIN HCl 500 MG Tablet TAKE 1 TABLET BY MOUTH TWICE A DAY WITH MEALS Lisinopril 20 MG Tablet TAKE 1 TABLET BY MOUTH EVERY DAY FOR 30 DAYS Medication List reviewed and reconciled with the patientNot-Taking/PRN metFORMIN HCl 500 MG Tablet TAKE 1 TABLET BY MOUTH TWICE A DAY WITH MEALS Not-Taking/PRN Lisinopril 20 MG Tablet TAKE 1 TABLET BY MOUTH EVERY DAY FOR 30 DAYS Medication List reviewed and reconciled with the patient * Allergies: y Katerinllergies Verified. Objective: * Vitals: H t: 5ft, Wt: 223 lbs, BMI:43.55Index, BP: 152/85 mm Hg, SaO2:95%, HR: 61 /min, RR: 18 /min. * Examination: ???General Examination: ?GENERAL APPEARANCE:?Alert and oriented, in no acute distress, pleasant.?FACE:?symmetrical, well appearing.?ORAL CAVITY:?moist mucous membranes, uvula midline, tonguemidline.?NECK/THYROID:?trachea is midline, no adenopathy, normal thyroid without masses or nodules.?CARDIOVASCULAR:?Bradycardiac and regular rhythm, S1/S2 arenormal, no murmurs, rubs, or gallops.?PERIPHERAL PULSES:?radial pulses +2/4 bilaterally, posterior tibial pulses +2/4 bilaterally.?CHEST:?normal shape and expansion.?RESPIRATORY:?clear to auscultation bilaterally, good breath sounds bilaterally, no wheezes, rhonchi, rales.?GASTROINTESTINAL:?Abdomen Soft, not tender, positive bowelsounds in all 4 quadrants, no guarding..?NEUROLOGIC EXAM:?appropriate for age.?SKIN:?moist, warm, unremarkable, no rash.?EXTREMITIES:?bilaterally no clubbing, cyanosis, or edema. ?MUSCULOSKELETAL:?Normal ROM and strength is 5/5 throughout, normal inspection, no effusions, no swelling or deformity.?LYMPH NODES:?normal, No palpable adenopathy.?? ? Assessment: * Assessment: 1.?Primary hypertension - I10 (Primary)???2.?Screening mammogram for breast cancer - Z12.31???3.?Lipid screening - Z13.220???4.?Diabetes mellitus screening - Z13.1???5.?Encounter for screening for cardiovascular disorders - Z13.6???6.?Type 2 diabetes mellitus without complication, without long-term current use of insulin - E11.9??? Plan: * Treatment: Refill Propranolol HCl ER Capsule Extended Release 24 Hour, 160 MG, TAKE 1 CAPSULE BY MOUTH EVERY DAY, 90 days, 90 Capsule, Refills 1;?Refill Lisinopril Tablet, 20 MG, TAKE 1 TABLET BY MOUTH EVERY DAY FOR 30 DAYS, 30 days, 30, Refills 1.?LAB: Comprehensive Metabolic Panel ?LAB: Lipid Panel ?LAB: Thyroid Stim Hormone w/Rflx ?LAB: Complete Blood Count Auto Diff Notes: DIscussed with pt that I would like her to take Lisinopril daily to further decrease her blood pressure as it is very elevated despite the highest dose of propranolol. Also educated pt that I would consider a lower dose of propranolol in the future and increasing the lisinopril due to pt's heart rate being on the lower side of normal at 61 beats per minute. Pt is to report to the ER if experiencing one of the following symptoms: SOB, chest pain, worse headache of her life, ripping abdominal pain, or syncopal events. Pt voiced understanding. Pt is to come back in 4 weeks to assess effectiveness of therapy.??2.?Screening mammogram for breast cancer?Imaging: MM screening mammo BI w/CAD Notes: Mammogram order sent to [place], will call pt with results.???3.?Lipid screening?LAB: Comprehensive Metabolic Panel ?LAB: Lipid Panel ?LAB: Thyroid Stim Hormone w/Rflx ?LAB: Complete Blood Count Auto Diff Notes: Labs sent to [place], will call pt with results.??4.?Diabetes mellitus screening?LAB: Comprehensive Metabolic Panel ?LAB: Lipid Panel ?LAB: Thyroid Stim Hormone w/Rflx ?LAB: Complete Blood Count Auto Diff Notes: A1C in office today was 6.5 . This is lower since last A1c from 05/2024 at 7.1. Pt was initially on MEtformin therapy for her prediabetes, however she stopped taking it due to stomach upset. Discussed our options between sulfonylureas, glipizide vs. GLP1, semaglutide. Educated pt about the side effects of both and pt states that she would prefer the Ozempic. Ozempic sent to pharmacy. Pt is to call insurance to see what GLP1 they would cover for her since she trialed and failed Metformin. Pt is agreeable to the treatment plan.?? 5.?Encounter for screening for cardiovascular disorders?LAB: Comprehensive Metabolic Panel ?LAB: Lipid Panel ?LAB: Thyroid Stim Hormone w/Rflx ?LAB: Complete Blood Count Auto Diff6.?Type 2 diabetes mellitus without complication, without long-term current use of insulin? Start Ozempic (0.25 or 0.5 MG/DOSE) Solution Pen-injector, 2 MG/3ML, 0.25 mg/dose once a week, Subcutaneous, one a week, 30 days, 12 pre-filled pen syringe, Refills 3.?? * Procedure Codes: 3 079F DIAST BP 80-89 MM [id number] RVW MEDS BY RX/DR IN [id number] SYST BP >= 140 MM HG * Follow Up: 4 Weeks (Reason: bp and T2DM recheck) Billing Information: * Procedure Codes: 3079F DIAST BP 80-89 MM HG. 1160F RVW MEDS BY RX/DR IN RD. 3077F SYST BP >= 140 MM HG. * Electronic signature of Candy Khan , [phone] on 12/14/2024 at 12:34 PM ESTSign off status: Pending * Appointment Provider: Segundo Khan PA-C Date: Generated for Printing/Faxing/eTransmitting on:?12/14/2024 12:34 PM EST
--- OUTSIDE RECORDS SUMMARY | 2024-12-14 12:35 | XMS_ITS | CCD ---
Author Organization [facility] Inform ion Partnership [facility] Care Team Providers Care Curing Press Maintainer Name Role Phone ERLIN Holcomb Attending Provider Paige Holcomb Admitting Unavailable Paige Holcomb Attending Unavailable Problems Problem ClassificationProblemDateDocumented DateEpisodic/ChronicEssential hypertension (1 source)Essential (primary) hypertension; Translations: [Essential (primary) hypertension]Onset: 59-99-1758Hyrblst Results Test NameValueInterpretationReference RangeFacilityAlanine aminotransferase [Enzymatic activity/volume] in Serum or PlasmaOrdered By: Paige Holcomb on 45-80-8635CFF [Catalytic activity/Vol]19 U/L7-52[facility] HospitalAlbumin [Mass/volume] in Serum or Plasma by Bromocresol green (BCG) dye binding methoOrdered By: Paige Holcomb on 67-48-8797Bijpegh BCG dye [Mass/Vol]3.9 g/dL3.5-5.7FMercy Health Willard HospitalAlkaline phosphatase [Enzymatic activity/volume] in Serum or PlasmaOrdered By: Paige Holcomb on 95-40-8976DQQ [Catalytic activity/Vol]101 U/D94-145GswyfscslBlanchard Valley Health System [facility] Valley HospitalAspartate aminotransferase [Enzymatic activity/volume] in Serum or PlasmaOrdered By: Paige Holcomb on 74-63-3008TAB [Catalytic activity/Vol]13 U/N30-29HzluthzlbBlanchard Valley Health System [facility] Valley HospitalBasophils Auto (Bld) [#/Vol]Ordered By: Paige Holcomb on 06-11-2022 Basophils (Bld) [#/Vol]0.1 10*3/uL0.0-0.2FMercy Health Willard Hospital Basophils/100 WBC Auto (Bld)Ordered By: Paige Holcomb on 52-69-4690Nacfjsdvp/100 WBC (Bld)0.7 %.[facility] HospitalBilirubin.total [Mass/volume] in Serum or PlasmaOrdered By: Paige Holcomb on 00-75-6616Bseymqflr [Mass/Vol]0.9 mg/dL0.3-1.0[facility] HospitalCalcium [Mass/volume] in Serum or PlasmaOrdered By: Paige Holcomb on 34-57-8174Dhnzwjz [Mass/Vol]8.6 mg/dL8.6-10.3 [facility] HospitalCarbon dioxide, total [Moles/volume] in Serum or PlasmaOrdered By: Paige Holcomb on 91-75-9098ID2 [Moles/Vol]28.9 mmol/L 21.0-31.0[facility] HospitalChloride [Moles/volume] in Serum or PlasmaOrdered By: Paige Holcomb on 18-06-7650Iyzbzcpe [Moles/Vol]103 mmol/L98-107 [facility] HospitalCholesterol [Mass/volume] in Serum or Plasma Ordered By: Paige Holcomb on 47-81-2289Ybiahgdyvaf [Mass/Vol]150 mg/xP491-466 [facility] HospitalComment on above:Chol less than 200 mg/dl low riskChol 201-239 mg/dl borderline riskChol 240 mg/dl and greater high risk Cholesterol in LDL Calc [Mass/Vol]Ordered By: Paige Holcomb on 06-11-2022 Cholesterol in LDL [Mass/Vol]73 mg/dL0-100[facility] Comment on above:LDL ATP III CLASSIFICATIONLDL less than 100 mg/dL OptimalLDL 100-129 mg/dL Near or above iezbddtUCK538-336 mg/dL Borderline highLDL 160-189 mg/dL HighLDL greater than 189 mg/dL Very highCholesterol in VLDL Calc [Mass/Vol]Ordered By: Paige Holcomb on 10-82-7100Sjjlfihnvxs in VLDL [Mass/Vol]15 mg/dLBlanchard Valley Health System [facility] Valley HospitalComplete Blood Count Auto Diffon 79-98-8987Mmcctlvll (Bld) [#/Vol]0.1 10*3/uLNormal0.0-0.2FMercy Health Willard HospitalComment on above:Order Comment: Reason for Exam Primary hypertensionResult Comment: PERFORMED BY: [place] [address] PATHOLOGIST MANUFACTURING MAINTENANCE MECHANIC AMY ROMERO M.D.Performed By: #### LIPID, CBC, CMP #### [place] [address] USABasophils/100 WBC (Bld)0.7 %Normal.[facility] Valley HospitalComment on above:Order Comment: Reason for Exam Primary hypertensionPerformed By: #### LIPID, CBC, CMP #### [place] [address] USAEosinophils (Bld) [#/Vol]0.1 10*3/uLNormal0.0-0.45 [facility] HospitalComment on above:Order Comment: Reason for Exam Primary hypertensionPerformed By: #### LIPID, CBC, CMP #### [place] [address] USAEosinophils/100 WBC (Bld)1.6 %Normal.[facility] HospitalComment on above:Order Comment: Reason for Exam Primary hypertensionPerformed By: #### LIPID, CBC, CMP #### [place] [address] USAErythrocyte distribution width (RBC) [Ratio]13.2 %Normal 11.9-15.3FMercy Health Willard HospitalComment on above:Order Comment: Reason for Exam Primary hypertensionPerformed By: #### LIPID, CBC, CMP #### [place] [address] USAHematocrit (Bld) [Volume fraction]44.5 %Prgags48.0-46.4 [facility] HospitalComment on above:Order Comment: Reason for Exam Primary hypertensionPerformed By: #### LIPID, CBC, CMP #### [place] [address] USAHemoglobin (Bld) [Mass/Vol]14.6 g/yCVhrtvo25.8-15.4 [facility] HospitalComment on above:Order Comment: Reason for Exam Primary hypertensionPerformed By: #### LIPID, CBC, CMP #### [address] [place] [address] USALymphocytes (Bld) [#/Vol]2.3 10*3/uLNormal1.00-4.8 [facility] HospitalComment on above:Order Comment: Reason for Exam Primary hypertensionPerformed By: #### LIPID, CBC, CMP #### [place] [address] USALymphocytes/100 WBC (Bld)29.0 %Normal.[facility] HospitalComment on above:Order Comment: Reason for Exam Primary hypertensionPerformed By: #### LIPID, CBC, CMP #### [address]H (RBC) [Entitic mass]30.5 pqXshjad71.7-34.3FMercy Health Willard HospitalComment on above:Order Comment: Reason for Exam Primary hypertensionPerformed By: #### LIPID, CBC, CMP #### [address]V (RBC) [Entitic vol]92.6 aNDanami36-834SjjtujijsBlanchard Valley Health System [facility] Valley HospitalComment on above:Order Comment: Reason for Exam Primary hypertensionPerformed By: #### LIPID, CBC, CMP #### [place] [address] USAMean Corpuscular HGB Conc32.9 g/uFIbggwe97.0-35.0[facility] HospitalComment on above:Order Comment: Reason for Exam Primary hypertensionPerformed By: #### LIPID, CBC, CMP #### [place] [address] USAMonocytes (Bld) [#/Vol]0.7 10*3/uLNormal0.0-0.8[facility] HospitalComment on above:Order Comment: Reason for Exam Primary hypertensionPerformed By: #### LIPID, CBC, CMP #### [place] [address] USAMonocytes/100 WBC (Bld)8.8 %Normal.[facility] HospitalComment on above:Order Comment: Reason for Exam Primary hypertensionPerformed By: #### LIPID, CBC, CMP #### [facility] [address] [place] [address] USANeutrophils (Bld) [#/Vol]4.7 10*3/uLNormal1.8-7.7FMercy Health Willard HospitalComment on above:Order Comment: Reason for Exam Primary hypertensionPerformed By: #### LIPID, CBC, CMP #### [facility] [address] [place] [id number] USANeutrophils/100 WBC (Bld)59.9 %Normal.[facility] HospitalComment on above:Order Comment: Reason for Exam Primary hypertensionPerformed By: #### LIPID, CBC, CMP #### [facility] [address] [place] [address] USANRBC%0.2 /100{WBC}Normal0-0.5FMercy Health Willard HospitalComment on above:Order Comment: Reason for Exam Primary hypertension Performed By: #### LIPID, CBC, CMP #### [facility] [address] [place] [address] USAPlatelet mean volume (Bld) [Entitic vol]9.8 fLNormal 6.3-10.7FMercy Health Willard HospitalComment on above:Order Comment: Reason for Exam Primary hypertensionPerformed By: #### LIPID, CBC, CMP #### [facility] [address] [place] [address] USAPlatelets (Bld) [#/Vol]337 10*3/gRFgbzzv427-764AuxrfxcvqBlanchard Valley Health System [facility] HospitalComment on above:Order Comment: Reason for Exam Primary hypertensionPerformed By: #### LIPID, CBC, CMP #### [facility] [address] [place] [address] USARBC (Bld) [#/Vol]4.81 10*6/uLNormal3.60-5.00[facility] HospitalComment on above:Order Comment: Reason for Exam Primary hypertensionPerformed By: #### LIPID, CBC, CMP #### [facility] [address] [place] [address] USAWBC (Bld) [#/Vol]7.9 10*3/uLNormal3.8-11.6FMercy Health Willard HospitalComment on above:Order Comment: Reason for Exam Primary hypertensionPerformed By: #### LIPID, CBC, CMP #### [facility] [address] [place] [address] USAComprehensive Metabolic Panelon 60-31-7432Zhawiwe [Mass/Vol]3.9 g/dLNormal3.5-5.7FMercy Health Willard HospitalComment on above:Order Comment: Reason for Exam Primary hypertensionPerformed By: #### LIPID, CBC, CMP #### [facility] [address] [place] [address] USAAlbumin/Globulin [Mass ratio]1.6 {ratio}Parkview HealthComment on above:Order Comment: Reason for Exam Primary hypertensionPerformed By: #### LIPID, CBC, CMP #### [facility] [address] [place] [address] USAALP [Catalytic activity/Vol]101 U/WLrnknv63-562ZmnmzkcooBlanchard Valley [facility] System [facility] HospitalComment on above:Order Comment: Reason for Exam Primary hypertensionPerformed By: #### LIPID, CBC, CMP #### [facility] [address] [place] [address] USAALT [Catalytic activity/Vol]19 U/LNormal7-52[facility] HospitalComment on above:Order Comment: Reason for Exam Primary hypertensionPerformed By: #### LIPID, CBC, CMP #### [facility] [address] [place] [address] USAAnion gap [Moles/Vol]11.3 mmol/LNormal6.0-15.0[facility] HospitalComment on above:Order Comment: Reason for Exam Primary hypertensionPerformed By: #### LIPID, CBC, CMP #### [facility] [address] [place] [address] USAAST [Catalytic activity/Vol]13 U/HWtnedq11-46NwbnlfilzBlanchard Valley Health System [facility] HospitalComment on above:Order Comment: Reason for Exam Primary hypertensionPerformed By: #### LIPID, CBC, CMP #### [facility] [address] [place] [address] USABilirubin [Mass/Vol]0.9 mg/dLNormal0.3-1.0[facility] HospitalComment on above:Order Comment: Reason for Exam Primary hypertensionPerformed By: #### LIPID, CBC, CMP #### [facility] [address] [place] [address] USACalcium [Mass/Vol]8.6 mg/dLNormal8.6-10.3FMercy Health Willard HospitalComment on above:Order Comment: Reason for Exam Primary hypertensionPerformed By: #### LIPID, CBC, CMP #### [facility] [address] [place] [address] USAChloride [Moles/Vol]103 mmol/LXcbbpe32-958KirwuntsvBlanchard Valley Health System [facility] HospitalComment on above:Order Comment: Reason for Exam Primary hypertensionPerformed By: #### LIPID, CBC, CMP #### [facility] [address] [place] [address] USACO2 [Moles/Vol]28.9 mmol/YOiwtvz11.0-31.0[facility] HospitalComment on above:Order Comment: Reason for Exam Primary hypertensionPerformed By: #### LIPID, CBC, CMP #### [facility] [address] [place] [address] USACreatinine [Mass/Vol]0.62 mg/dLNormal0.60-1.20[facility] HospitalComment on above:Order Comment: Reason for Exam Primary hypertensionPerformed By: #### LIPID, CBC, CMP #### [facility] [address] [place] [address] USAGFR/1.73 sq M.predicted MDRD (S/P/Bld) [Vol rate/Area] mL/min/{1.73_m2}NormalBlanchard Valley Health System [facility] Valley HospitalComment on above:Order Comment: Reason for Exam Primary hypertensionPerformed By: #### LIPID, CBC, CMP #### [facility] [address] [place] [address] USAGlobulin (S) [Mass/Vol]2.5 g/dLNormalBlanchard Valley Health System [facility] HospitalComment on above:Order Comment: Reason for Exam Primary hypertensionPerformed By: #### LIPID, CBC, CMP #### [facility] [address] [place] [address] USAGlucose [Mass/Vol]133 mg/ePDoay32-044RfdjagfaxBlanchard Valley Health System [facility] HospitalComment on above:Order Comment: Reason for Exam Primary hypertensionResult Comment: Random Glucose Reference Range is dependent on time and content of last meal. Glucose of more than 200 mg/dL in a nonstressed, ambulatory subject supports the diagnosis of Diabetes Mellitus. ADA recommended reference rangePerformed By: #### LIPID, CBC, CMP #### [facility] [address] [place] [address] USAPotassium [Moles/Vol]4.2 mmol/LNormal3.5-5.1FMercy Health Willard HospitalComment on above:Order Comment: Reason for Exam Primary hypertensionPerformed By: #### LIPID, CBC, CMP #### [facility] [address] [place] [address] USAProtein [Mass/Vol]6.4 g/dLNormal6.4-8.9[facility] HospitalComment on above:Order Comment: Reason for Exam Primary hypertensionPerformed By: #### LIPID, CBC, CMP #### [facility] [address] [place] [address] USASodium [Moles/Vol]139 mmol/TCebasr188-588KiintejnaBlanchard Valley Health System [facility] HospitalComment on above:Order Comment: Reason for Exam Primary hypertensionPerformed By: #### LIPID, CBC, CMP #### [facility] [address] [place] [address] USAUrea nitrogen [Mass/Vol]18 mg/dLNormal7-25[facility] HospitalComment on above:Order Comment: Reason for Exam Primary hypertensionPerformed By: #### LIPID, CBC, CMP #### [facility] [address] [place] [address] USACreatinine [Mass/volume] in Serum or PlasmaOrdered By: Paige Holcomb on 76-14-8636Djqunmeyil [Mass/Vol]0.62 mg/dL0.60-1.20[facility] HospitalEosinophils Auto (Bld) [#/Vol]Ordered By: Paige Holcomb on 62-42-5117Yiwszctomtm (Bld) [#/Vol]0.1 10*3/uL0.0-0.45[facility] HospitalEosinophils/100 WBC Auto (Bld)Ordered By: Paige Holcomb on 87-73-5412Wycxybncrgu/100 WBC (Bld)1.6 %.[facility] Erythrocyte distribution width Auto (RBC) [Ratio]Ordered By: Paige Holcomb on 27-79-8148Kfcqwcmdpft distribution width (RBC) [Ratio]13.2 %11.9-15.3FMercy Health Willard HospitalGlobulin Calc (S) [Mass/Vol]Ordered By: Paige Holcomb on 43-38-0880Iktrjlws (S) [Mass/Vol]2.5 g/dLBlanchard Valley Health System [facility] Glucose [Mass/volume] in Serum or PlasmaOrdered By: Paige Holcomb on 06-11-2022 Glucose [Mass/Vol]133 mg/pK44-825YwgzviurvBlanchard Valley Health System [facility] Valley HospitalComment on above:ADA recommended reference rangeRandom Glucose Reference Range is dependent on time and content of last meal. Glucose of more than 200 mg/dL in a nonstressed, ambulatory subject supports the diagnosisof Diabetes Mellitus. Hematocrit Auto (Bld) [Volume fraction]Ordered By: Paige Holcomb on 06-11-2022 Hematocrit (Bld) [Volume fraction]44.5 %34.0-46.4FMercy Health Willard HospitalHemoglobin [Mass/volume] in BloodOrdered By: Paige Holcomb on 06-11-2022 Hemoglobin (Bld) [Mass/Vol]14.6 g/dL11.8-15.4FMercy Health Willard Hospital Leukocytes [#/volume] corrected for nucleated erythrocytes in Blood by Automated counOrdered By: Paige Holcomb on 73-62-9638EGK corrected for nucl RBC Auto (Bld) [#/Vol]7.9 10*3/uL3.8-11.6FMercy Health Willard HospitalLipid Panelon 92-81-9415Sfdizayxsuz [Mass/Vol]150 mg/fOKxazbf081-128MkjhpttxtBlanchard Valley Health System [facility] Valley HospitalComment on above:Order Comment: Reason for Exam Primary hypertension Result Comment: Chol less than 200 mg/dl low risk Chol 201-239 mg/dl borderline risk Chol 240 mg/dl and greater high riskPerformed By: #### LIPID, CBC, CMP #### [facility] [address] [place] [address] USACholesterol in HDL [Mass/Vol]62 mg/iREbsxta40-83IvbtmveoeBlanchard Valley Health System [facility] HospitalComment on above:Order Comment: Reason for Exam Primary hypertensionResult Comment: HDL CHOL ATP-III CLASSIFICATION Cardiovascular Risk HDL > or equal to 60 mg/dL LOW HDL < 40 mg/dL HIGHPerformed By: #### LIPID, CBC, CMP #### [facility] [address] [place] [address] USACholesterol.total/Cholesterol in HDL [Mass ratio]2.4 {ratio}Normal<5.0[facility] Valley HospitalComment on above:Order Comment: Reason for Exam Primary hypertensionResult Comment: PERFORMED BY: [address] [address] PATHOLOGIST MANUFACTURING MAINTENANCE MECHANIC AMY ROMERO M.D.Performed By: #### LIPID, CBC, CMP #### [facility] [address] [place] [address] USALDL Cholesterol,Fkzdeenivc97 mg/dLNormal0-100[facility] HospitalComment on above:Order Comment: Reason for Exam Primary hypertensionResult Comment: LDL ATP III CLASSIFICATION LDL less than 100 mg/dL Optimal LDL 100-129 mg/dL Near or above optimal LDL 130-159 mg/dL Borderline high LDL 160-189 mg/dL High LDL greater than 189 mg/dL Very highPerformed By: #### LIPID, CBC, CMP #### [facility] [address] [place] [address] USATriglyceride w/Wrppeg42 mg/dLNormal0-149[facility] HospitalComment on above:Order Comment: Reason for Exam Primary hypertensionResult Comment: TRIG ATP III CLASSIFICATION TRIG less than 150 mg/dL Normal TRIG 150-199 mg/dL Borderline high TRIG 200-500 mg/dL High TRIG greater than 500 mg/dL Very high Standard traceable to the Center for Disease Conrtrol and Prevention (CDC) test method.Performed By: #### LIPID, CBC, CMP #### [facility] [address] [place] [address] USAVLDL OQPYMNIAGCS99 mg/dLNormalBlanchard Valley Health System [facility] HospitalComment on above:Order Comment: Reason for Exam Primary hypertension Performed By: #### LIPID, CBC, CMP #### [facility] [address] [place] [address] USALymphocytes Auto (Bld) [#/Vol]Ordered By: Paige Holcomb on 93-56-0027Brkbtsdwfrr (Bld) [#/Vol]2.3 10*3/uL1.00-4.8[facility] HospitalLymphocytes/100 WBC Auto (Bld)Ordered By: Paige Holcomb on 06-11-2022 Lymphocytes/100 WBC (Bld)29.0 %.[facility] Auto (RBC) [Entitic mass]Ordered By: Paige Holcomb on 40-15-1251SMR (RBC) [Entitic mass]30.5 pg24.7-34.3FMercy Health Willard HospitalMCHC Auto (RBC) [Mass/Vol]Ordered By: Paige Holcomb on 18-33-4821QZWS (RBC) [Mass/Vol]32.9 g/dL32.0-35.0[facility] HospitalMCV Auto (RBC) [Entitic vol]Ordered By: Paige Holcomb on 79-63-2602QTP (RBC) [Entitic vol]92.6 uD95-836ZozjwvrkuBlanchard Valley Health System [facility] Monocytes Auto (Bld) [#/Vol]Ordered By: Paige Holcomb on 11-87-2410Veezjtnbd (Bld) [#/Vol]0.7 10*3/uL0.0-0.8[facility] HospitalMonocytes/100 WBC Auto (Bld)Ordered By: Paige Holcomb on 61-90-3811Gjcycrgxs/100 WBC (Bld)8.8 % .[facility] HospitalNeutrophils Auto (Bld) [#/Vol]Ordered By: Paige Holcomb on 15-69-5374Mhgqfjomloe (Bld) [#/Vol]4.7 10*3/uL1.8-7.7FMercy Health Willard HospitalNeutrophils/100 WBC Auto (Bld)Ordered By: Paige Holcomb on 98-81-2358Nftpbsomzyk/100 WBC (Bld)59.9 %.[facility] HospitalNo Panel InformationOrdered By: Paige Holcomb on 85-20-7819Tcvqidtfu GFR (CKD-EPI)> 60.0 mL/MinBlanchard Valley Health System [facility] Valley HospitalPharmacy Creatinine Clearance (Chem N/AFMercy Health Willard HospitalNucleated erythrocytes [Presence] in Blood by Automated countOrdered By: Paige Holcomb on 67-41-6566Nfbjlmmqh RBC Auto Ql (Bld)0.2 /100{WBC}0-0.5FMercy Health Willard HospitalPlatelet mean volume Auto (Bld) [Entitic vol]Ordered By: Paige Holcomb on 30-47-2087Xokmepcp mean volume (Bld) [Entitic vol]9.8 fL6.3-10.7FMercy Health Willard Hospital Platelets Auto (Bld) [#/Vol]Ordered By: Paige Holcomb on 62-60-6404Rkykqudnp (Bld) [#/Vol]337 10*3/yH270-829CcfisqptnBlanchard Valley Health System [facility] HospitalPotassium [Moles/volume] in Serum or PlasmaOrdered By: Paige Holcomb on 84-47-0479Hjoebmord [Moles/Vol]4.2 mmol/L3.5-5.1FMercy Health Willard HospitalProtein [Mass/volume] in Serum or PlasmaOrdered By: Paige Holcomb on 38-67-0540Opfiptp [Mass/Vol]6.4 g/dL6.4-8.9[facility] HospitalRBC Auto (Bld) [#/Vol] Ordered By: Paige Holcomb on 58-21-6399EUV (Bld) [#/Vol]4.81 10*6/uL3.60-5.00 SCCI Hospital Limaerum or plasma albumin/globulin mass ratio Ordered By: Paige Holcomb on 24-35-3255Ejoazuv/Globulin [Mass ratio]1.6 {ratio} SCCI Hospital Limaerum or plasma anion gap determinationOrdered By: Paige Holcomb on 93-58-0350Zqeka gap [Moles/Vol]11.3 mmol/L6.0-15.0SCCI Hospital Limaerum or plasma high density lipoprotein (HDL) cholesterol measurementOrdered By: Paige Holcomb on 89-27-5948Jipbpttrlyq in HDL [Mass/Vol]62 mg/hV97-48FvvcgvstmBlanchard Valley Health System [facility] HospitalComment on above:HDL CHOL ATP-III CLASSIFICATION Cardiovascular RiskHDL > or equal to 60 mg/dL LOWHDL < 40 mg/dL HIGHSerum or plasma total cholesterol/high density lipoprotein (HDL) cholesterol mass ratOrdered By: Paige Holcomb on 06-11-2022 Cholesterol.total/Cholesterol in HDL [Mass ratio]2.4 {ratio}<5.0SCCI Hospital Limaodium [Moles/volume] in Serum or PlasmaOrdered By: Paige Holcomb on 42-15-9806Hlyjri [Moles/Vol]139 mmol/C374-063PplfnisjjBlanchard Valley Health System [facility] Valley HospitalTriglyceride [Mass/volume] in Serum or PlasmaOrdered By: Paige Holcomb on 09-33-3363Oidsknurgyyq [Mass/Vol]75 mg/dL0-149[facility] HospitalComment on above:TRIG ATP III CLASSIFICATIONTRIG less than 150 mg/dL NormalTRIG 150-199 mg/dL Borderline highTRIG 200-500 mg/dL High TRIG greater than 500 mg/dL Very highStandard traceable to the Center for Disease Co nrtrol and Prevention (CDC) test method.Urea nitrogen [Mass/volume] in Serum or PlasmaOrdered By: Paige Holcomb on 95-47-7926Kbsk nitrogen [Mass/Vol]18 mg/dL7-25 [facility] HospitalWBC Auto (Bld) [#/Vol]Ordered By: Paige Holcomb on 28-73-2815AJO (Bld) [#/Vol]7.9 10*3/uL3.8-11.6FMercy Health Willard HospitalConsent Formson 93-58-1563Izeiuht Forms [id number]#1.00OTGTOhioHealth Nelsonville [facility] Center Standardon 02-04-9320xKOY Non AA>[address] [place], [place] [address]Comment on above:Performed By: #### [id number], [id number], [id number], [id number], [id number], [id number], [id number] #### [facility] (DEFAULT) [address] [place] [id number] AA>60Maselect medical specialty hospital - trumbull HospitalComment on above:Result Comment: Chronic Kidney disease could be indicated at eGFRs of less than 60 ml/min/1.73m2. Kidney Failure is indicated at less than 15 ml/min/1.73m2 Performed By: #### [id number], [id number], [id number], [id number], [id number], [id number], [id number] #### [facility] (DEFAULT) [address] [place] [address]Ucezsrm mass conc3.9 g/dLNormal3.5-5.0[facility] Comment on above:Performed By: #### [id number], [id number], [id number], [id number], [id number], [id number], [id number] #### [facility] (DEFAULT) [address] [place] [address]Vkclyff/Globulin mass ratio1.1 {ratio}Low1.4-2.6M[facility] HospitalComment on above:Performed By: #### [id number], [id number], [id number], [id number], [id number], [id number], [id number] #### [facility] (DEFAULT) [address] [place] [address]Ybu Dily149 IU/XYmuv56-92Csfnnlgw HospitalComment on above:Performed By: #### [id number], [id number], [id number], [id number], [id number], [id number], [id number] #### [facility] (DEFAULT) [address] [place] [address] 71441BOH/SGPT27.0 IU/NOhwfgg91.0-54.0[facility] HospitalComment on above:Performed By: #### 5135979, 4003699, [id number], 2071646, 7612913, 8606767, [id number] #### [facility] (DEFAULT) [address] [place] [address] 70792Lbfhh gap molar conc13.0 mmol/LNormal5.0-19.0[facility] HospitalComment on above:Performed By: #### 5109786, 5188427, [id number], 8619537, 3736596, 5578631, [id number] #### [facility] (DEFAULT) [address] [place] [address] 62340LFZ/SGOT26 IU/XIxnutc46-46Epbgkcjh HospitalComment on above:Performed By: #### 7717490, 2158853, [id number], 6239578, 6779553, 5076747, [id number] #### [facility] (DEFAULT) [address] [place] [address] 32866Tprl Total1.0 mg/dLNormal0.3-1.2[facility] HospitalComment on above:Performed By: #### 9269591, 0596192, 8985703567, 3432676, 3060901, 8772345, 2847398724 #### [facility] (DEFAULT) [address] [place] [address] 43045Kwxsamh mass conc8.6 mg/dLLow8.9-10.3[facility] Hospital Comment on above:Performed By: #### 8057526, 2126550, 0176984333, 6631496, 0234543, 5103418, [id number] #### [facility] (DEFAULT) [address] [place] [address] 66825Bxssqgmv molar elhz644 mmol/EHnwzoe793-052Mnpbfond HospitalComment on above:Performed By: #### 1105572, 1244779, 5626589964, 0302370, 6819999, 9379634, 7701342925 #### [facility] (DEFAULT) [address] [place] [address] 59201TW6 molar conc24 mmol/RFfftyp78-23Bzsehcdq HospitalComment on above:Performed By: #### 8090982, 0181026, 5803239849, 2542917, 9118287, 7063481, 8384464491 #### [facility] (DEFAULT) [address] [place] [address] 27926Gshagxwsqb mass conc0.65 mg/dLNormal0.60-1.30[facility] HospitalComment on above:Performed By: #### 1361539, 9899005, 9378694081, 1500430, 7064670, 3082113, 1319496428 #### [facility] (DEFAULT) [address] [place] [address] 89167Wfdpluxh mass conc (S)3.5 g/dLNormal1.5-4.3[facility] HospitalComment on above:Performed By: #### 7172662, 7344184, 8280473272, 6562605, 5044181, 0277292, 3559688474 #### [facility] (DEFAULT) [address] [place] [address] 69050Vshqlsi mass bnty728.0 mg/rRZlvy09.0-118.0[facility] HospitalComment on above:Performed By: #### 2532749, 4500695, 3767229624, 1081284, 7406425, 6878902, 7169822165 #### [facility] (DEFAULT) [address] [place] [address] 52644Qjvpbbeyzt428 mOsm/LMagrst. [facility] HospitalComment on above: Performed By: #### 9494322, 9028050, 1622768501, 1805301, 9208902, 0479416, 4953307158 #### [facility] (DEFAULT) [address] [place] [address] 63332Etyzhgzzm molar conc3.8 mmol/LNormal3.6-5.1[facility] HospitalComment on above:Performed By: #### 1283130, 3771351, 4238290572, 5276878, 3086437, 0095168, 5090562249 #### [facility] (DEFAULT) [address] [place] [address] 31485Nygbhva mass conc7.4 g/dLNormal6.5-8.1[facility] Hospital Comment on above:Performed By: #### 5687350, 9807901, 7067185681, 1474124, 3055420, 4551799, 4691934137 #### [facility] (DEFAULT) [address] [place] [address] 64006Gnkwzp molar vgnv373.0 mmol/GDoc256.0-144.0[facility] HospitalComment on above:Performed By: #### 3559917, 3545833, 3915512184, 0623257, 7311327, 4199668, 7767344912 #### [facility] (DEFAULT) [address] [place] [address] 35970Zljg nitrogen mass conc13 mg/dLNormal8-26[facility] Hospital Comment on above:Performed By: #### 6765702, 8922466, 7063675942, 3105547, 6738981, 0611739, 7012412702 #### [facility] (DEFAULT) [address] [place] [address] 96517Scrg nitrogen/Creatinine mass ratio20.0 mg/mgHigh4.6-16.[address] [facility] HospitalComment on above:Performed By: #### 2368665, 7660195, 5176419629, 5412106, 9965554, 5930238, 2084339362 #### [facility] (DEFAULT) [address] [place] [address] 09335AFJjv 46-33-4429Sfvct glutamyl transferase enzyme act/vol 28.0 U/LNormal7.0-50.0[facility] HospitalComment on above:Performed By: #### 3035067, 2165715, 6003157265, 7199334, 1097698, 0757988, 3305221726 #### [facility] (DEFAULT) [address] [place] [address] 84921Ejcy Levelon 62-35-0912Xgxa mass tiqi629.0 ug/dLNormal 28.0-170.0[facility] HospitalComment on above:Performed By: #### 9155445, 6868613, 2594879755, 5529463, 9288689, 0902099, 3363538018 #### [facility] (DEFAULT) [address] [place] [address] 95713NZCna 31-86-7348SES289.0 IU/BEfmwsi95.0-192.0[facility] HospitalComment on above:Performed By: #### 9177357, 5054256, 2329657384, 4726848, 0287082, 7817986, 7893160644 #### [facility] (DEFAULT) [address] [place] [address] 44884Dnyvj Panel Standardon 25-68-1719Atnxardfoqc in HDL mass conc55 mg/hYSrmdbi86-64Mlhvqglq HospitalComment on above:Result Comment: High risk - <40 mg/dL.Performed By: #### 0946741, 9494380, 6425257924, 8338296, 1534173, 9290812, 8723281713 #### [facility] (DEFAULT) [address] [place] [address] 51380Rgjgsinhtkz in LDL mass conc81 mg/dLNormal1-100[facility] HospitalComment on above:Result Comment: Optimal - Less than 100 mg/dL Borderline high risk - 130-159 mg/dL High risk - 160-189 mg/dL.Performed By: #### 0676324, 0623169, 6877050322, 9816464, 2819849, 6661278, 4148979025 #### [facility] (DEFAULT) [address] [place] [address] 07496Nbtciciiuyc mass jayo577.0 mg/fFHuvgjy52.0-200.0[facility] HospitalComment on above:Result Comment: Desirable - Less than 200 mg/dL Borderline high risk - 200-239 mg/dL High risk - 240 mg/dL and over.Performed By: #### 3010861, 4765650, 2336742593, 0784098, 6939779, 9782216, 4390724642 #### [facility] (DEFAULT) [address] [place] [address] 26056Hlgtznssqdx.total/Cholesterol in HDL mass ratio2.7 {ratio} Normal0.0-4.5[facility] HospitalComment on above:Performed By: #### 7458742, 9712898, 3006288810, 9667419, 8101027, 9288230, 4862900869 #### [facility] [address] [place] [address] 17485Zamxcwtxtapu mass conc68.0 mg/dLNormal0.0-150.0[facility] HospitalComment on above:Performed By: #### 7650228, 4068144, 2380275999, 7233208, 4314929, 0390699, 0130958065 #### [facility] (DEFAULT) [address] [place] [address] 39170IDUN.14 mg/dLNormal5-40[facility] HospitalComment on above: Performed By: #### 3352564, 4790358, 9899802091, 3099182, 4261135, 4238528, 5834712617 #### [facility] (DEFAULT) [address] [place] [address] 63041Cxkbsa 93-16-5309Ascreznql mass conc2.9 mg/dLNormal2.5-4.[address] [facility] HospitalComment on above:Performed By: #### 0086925, 0400677, 9272476769, 4925956, 3728077, 5974977, 2807387170 #### [facility] (DEFAULT) [address] [place] [address] 65601Ulkk Acidon 59-42-0322Cjzuc mass conc6.8 mg/dLNormal 2.6-8.0[facility] HospitalComment on above:Performed By: #### 8055318, 1564663, 6395841622, 7233283, 5625006, 6022059, 6081602947 #### [facility] (DEFAULT) [address] [place] [address] 29276 Encounters Encounter DateEncounter TypeCare ProviderFacilityStart: 06-11-2022 End: 74-46-5409bprniwkrgxZewkl Rae MurrayFacility:[facility] Limatart: 06-11-2022 End: 82-48-8668hlbqerdxgxKZKG Alexa Murray Work Phone: [facility] Work Phone: Start: 06-11-2022 End: 63-89-1577Kumrnwaz ReferredERLIN Holcomb Work Phone: [facility] Payers DatePayer CategoryPayerPolicy [id number]-[id number] [id number] Health InsuranceAet Insurance Co [id number] Social History DateTypeDetailFacilityTobacco smoking status NHISUnknown if ever smokedGrand [facility] Joint [facility] Work Phone: Start: 45-74-8806Cir Assigned At [facility] Evaluation note Note Date & TypeNoteFacilityEvaluation noteNo assessment information available [facility] Work Phone: Summary Purpose Family History No Family History Records FoundNo Family History Records Found Advance Directives No Advanced Directives Records Found Advance Directive Response Recorded Date/ Time Advance Directives No June 04, 2 022 2:44pm Additional Source Comments INFORMATION SOURCE (unrecogn ized section and content) DATE CREATED AUTHOR 07/11/2018 [facility] DATE CREATED AUTHOR AUTHOR'S ORGANIZ ATION 06/14/2022 [facility] Care Teams (unrecognized sec tion and content) Team Status: Inactive Member Role Status Dates Paige Holcomb APRN RESIDENTIAL LEASING AGENT-C Attending Provider Active Goals (unrecognized section and content) Goals may be documented in a n alternate section FOR RECORDS PERTAINING TO PATIENTS WHO ARE OR HAVE BEEN ENROLLED IN A CHEMICAL DEPENDENCY/SUBSTANCEABUSE PROGRAM, SOME INFORMATION MAY BE OMITTED. This clinical summary was aggregated from multiple sources. Caution should be exercised in using it in the provision of clinical care. This summary normalizes information from multiple sources, and as a consequence, information in this document may materially change the coding, format and clinical context of patient data. In addition, data may be omitted in some cases. CLINICAL DECISIONS SHOULD BE BASED ON THE PRIMARY CLINICAL RECORDS. [facility]. provides no warranty or guarantee of the accuracy or completeness of information in this document.
--- OUTSIDE RECORDS SUMMARY | 2024-12-14 12:35 | XMS_ITS | Patient Health Record ---
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 Role Phone Candy Khan Primary Care Provider Yoandy Del Real Unavailable [phone] Paige Akbar Unavailable [phone] Lala Mirza Unavailable [phone] Allergies No Known Allergies Results Component Value Reference Range Notes Hemoglobin A1c Reviewed date:06/06/2024 10:48:14 AM Interpretation:7.1% Performing Lab: Notes/Report: 7.1% Hemoglobin A1c 7.1% 5 - 7.9 % Reason For Referral No Information Medications Medication SIG (Take, Route, Frequency, Duration) [...] DAY FOR 30 DAYS; Duration: 30 daysActive Immunizations Vaccine Route Administration Date Status Comme nts Influenza 3+ PRIVATE IM Intramuscular 11/07/2021 Administe red Social History Tobacco Use: Social History Observation [...] in the past year?Less than monthly (1 point)Qhnddq6TxjhjdskahqzzzOlpggujhZLZI-77 (2020 Edition)1. Have you used drugs other [...] reportedTobacco Use:Social InfoQuestion AnswerNotesTobacco Control (Standard)Tobacco use:Nonsmoker Problems Problem Type SNOMED Code ICD Code Onset Dates Problem Status W/U Status Risk Notes Problem Chronic pain (29233262) Other chronic keyon n (G89.29) ActiveconfirmedProblemPrimary hypertension (90424569)Primary hypertension (I10) ActiveconfirmedProblemType II diabetes mellitus without complication (810942195) Type 2 diabetes mellitus without complication, without long-term current use of insulin (E11.9)Activeconfirmed Vital Signs Heart Rate 61 /min 12/04/2024 Xhfceemyhxv92.8 degrees Ryneqyhpkd30/29/2025Respiratory Rate18 /min12/04/2024 Ooaagtpl25 %12/04/2024lood pressure mm Hg12/04/20244503Wxatvo5zm in 12/04/2024lood pressure fgiqdbvw011 mm Hg12/04/20246680Kmolpj516 lbs1MI 43.55 kg/m212/04/2024 Encounters Encounter Location Date Provider Diagnosis [facility] [address] [place] [address] 06/06/2024 [facility] [place] [address] [facility] [place] [address] [facility] [place] [address] [facility] [place] [address] 11/28/2024Nicole SanobaPrimary hypertension I10[facility] [place] [address]/27/2025Nicole SanobaPrimary hypertension I10 ; Screening mammogram for breast cancer Z12.31 ; Lipid screening Z13.220 ;Diabetes mellitus screening Z13.1 ; Encounter for screening for cardiovascular disorders Z13.6 and Type 2 diabetes mellitus without complication, without long-term current use of insulin E11.9[facility] [place] [address]/[facility] I10 ; Type 2 diabetes mellitus without complication, without long-term currentuse of insulin E11.9 and Breast cancer screening by mammogram Z12.31 Assessments Encounter Date Diagnosis (ICD Code) Assessment Notes Treatment Notes Treatment Clinical Notes Section Notes 06/06/2024 Primary hypertension (ICD-10 - I 10) Patient has acceptable blood pressure control at this visit. Labs ordered and printed out for patient to have down at [facility]. Patient is instructed to continue blood pressure medication regimen as before. Will recheck at 3 weeks follow up and review blood pressure, and discuss lab. Patient is encouraged to check blood pressure while at home and write down the numbers to bring into next appointment.11/28/2024Primary hypertension (ICD-10 - I10)12/04/2024Primary hypertension (ICD-10 - I10)DIscussed with pt that I would like her [...] in 4 weeks to assess effectiveness of therapy.12/04/2024Screening mammogram for breast cancer (ICD-10 - Z12.31) Mammogram order sent to [place], will call pt with results.12/04/2024Lipid screening (ICD-10 - Z13.220)Labs sent to [place], will call pt with results. 06/06/2024Type 2 diabetes mellitus without complication, without long-term current use of insulin (ICD-10 - E11.9)Obtained and reviewed A1c in the office today. Pt would benefit from weight loss and improved A1C, lower blood sugars. Pt will start on Ozempic. Pt educated on how to take medication and that does need to eat less at time and follow instructions on how to take medication weekly sq, dose will start at .25 mg x 4 weeks, then .5 mg x 4 weeks. Recommended eating smaller meals and avoid rich, fried foods. Education on possible s/e of med and pt VU. Patient is encouraged to have annual diabetic eye exams and foot exams. Will send in glucometer for patient to check fasting blood sugar as needed. Follow up in 3 weeks to monitor patients response to the medication.06/06/2024reast cancer screening by mammogram (ICD-10 - Z12.31) Mammogram ordered for breast cancer screening.12/04/2024Diabetes mellitus screening (ICD-10 - Z13.1)A1C in office [...] long-term current use of insulin (ICD-10 - E11.9)06/06/2024OtherBody Mass Index: Care Instructions material was printed Plan Of Treatment Pending Test Test Name Order Date Comprehensive Metabolic Panel 12/04/2024 Comprehensive Metabolic Panel 06/06/2024 Lipid Panel 12/04/2024 Lipid Panel 06/06/2024 Thyroid Stim Hormone w/Rflx 06/06/2024 Thyroid Stim Hormone w/Rflx 12/04/2024 Complete Blood Count Auto Diff 5 Complete Blood Count Auto Diff 5 MM screening mammo BI w/CAD 06/06/2024 MM screening mammo BI w/CAD 12/04/2024 MM screening mammo BI w/CAD 07/08/2023 Next Appt Details Provider Name:Candy Khan, 01/01/2025 11:30:00 AM, [address] [place] [address], [address], Insurance Providers Payer Name Payer Address Payer Phone Subscriber Number Group Number Insured Name Patient Relationship to Insured Coverage Start Date Coverage End Date [email or web address] [address] [address] [place] [phone] [id number] JIMMIE PEREZnadira - patient is the [id number] 2024[facility] [address] [place] [id number], KIMBERLYSelf - patient is the [id number]/2025[facility] [address] [place] [id number], KIMBERLYSelf - patient is the [id number]/ Medical (General) History Medical History History ICD Code hypertension type II diabetesSurgical History Surgery Date(Month/Year) gallbladder colonoscopyHospitalization History Reason Date(Month/Year) see surgical
--- NOTE | 2024-12-14 13:10 | MM_ITS ---
Patient Name: JERAMIE PEREZ MR#: [id number] : 1960 Exam Date: 12/14/2024 Ordering Doctor: NON-STAFF PHYSICIAN RADIOLOGY REPORT PROCEDURE: MM TOMOSYNTHESIS SCREENING BI COMPARISON: MM SCREENING MAMMO BI, 03/07/2016. INDICATIONS: Screening Calculator Name NCI Breast Cancer Risk Assessment Tool 5 Year Breast Cancer Risk 3.30% Lifetime Breast Cancer Risk 13.60% Personal Breast Cancer No Personal Ovarian Cancer No Treatments None Family Cancers Mother with breast cancer at age 60; Brother with colon/liver cancer at age 55. LOCATION: [facility] BREAST COMPOSITION: There are scattered areas of fibroglandular density. FINDINGS: RIGHT BREAST: No significant suspicious finding. LEFT BREAST: No significant suspicious finding. DIAGNOSTIC CATEGORY 1--NEGATIVE. NO CHANGE FROM COMPARISON ASSESSMENT. RECOMMENDATIONS: ROUTINE MAMMOGRAM AND CLINICAL EVALUATION IN 12 MONTHS. Dictated by: Dereje Rivers MD on 12/14/2024 at 15:06 Approved by: Dereje Rivers MD on 12/14/2024 at 15:18
[2024-12-14 13:34] LABS: Hematocrit 44.9 % (36.0-48.0); Hemoglobin 15.2 g/dL (12.0-16.0); Immature Granulocytes Abs Auto 0.01 10^3/uL (0.00-0.03); Immature Granulocytes Pct Auto 0.1 % (0.0-0.5); Lymphocytes Absolute Auto 3.2 10^3/uL (1.2-3.8); Mean Corpuscular HGB Conc 33.9 g/dL (29.9-35.2); Mean Corpuscular Hemoglobin 31.2 pg (26.7-34.0); Mean Corpuscular Volume 92.2 fL (81.0-99.0); Platelet Count 362 10^3/uL (150-450); Red Blood Count 4.87 10^6/uL (4.20-5.40); White Blood Count 8.0 10^3/uL (4.0-11.0)
[2024-12-14 15:00] LABS: Alanine Aminotransferase 33 U/L (14-59); Albumin Globulin Ratio 0.9; Albumin Level 3.4 g/dL (3.4-5.0); Alkaline Phosphatase 107 U/L (46-116); Anion Gap 12.6; Aspartate Amino Transferase 22 U/L (15-37); Blood Urea Nitrogen 15.0 mg/dL (7.0-18.0); Calcium 8.7 mg/dL (8.5-10.1); Carbon Dioxide 28.4 mmol/L (21.0-32.0); Chloride 103 mmol/L (98-107); Cholesterol 152 mg/dL (<=200); Estimated GFR (African America >60 (>=60 mL/min/1.73m^2); Estimated GFR (Non-African Ame >60 (>=60 mL/min/1.73m^2); Globulin 3.8 g/dL; Glucose 118 mg/dL (74-106); HDL Cholesterol 62 mg/dL (40-60); Potassium 4.0 mmol/L (3.5-5.1); Sodium 140 mmol/L (136-145); TSH W/ REFLEX FT4 1.754 uIU/mL (0.358-3.740); Total Protein 7.2 g/dL (6.4-8.2); Triglycerides 86 mg/dL (<=150); VLDL CHOLESTEROL 17.2 mg/dL
== END 2024-12-14 12:32 | disposition home or self-care (01) ==
LOC: MAMMO 12:31
DX: Z12.31 Encounter for screening mammogram for malignant neoplasm of breast (principal); I10 Essential (primary) hypertension; Z13.220 Encounter for screening for lipoid disorders; Z13.1 Encounter for screening for diabetes mellitus; Z13.6 Encounter for screening for cardiovascular disorders; Z80.3 Family history of malignant neoplasm of breast; Z80.0 Family history of malignant neoplasm of digestive organs
CPT/HCPCS: 36415; 77063; 77067; 80053; 80061; 84443; 85025